=== PATIENT | male | born 1990 | race Caucasian/White ===

== ENCOUNTER 2017-06-07 16:34 | Emergency (ER) | payer OTHER ==
[2017-06-07 16:55] VITALS: RESP 18
[2017-06-07] MEDS ORDERED: SODIUM CHLORIDE 0.9% 1,000 ML IV STA (17:28)
--- NOTE | 2017-06-07 17:34 | ED ---
Syncope HPI - General Chief Complaint: Syncope Stated Complaint: Syncope Time Seen by Provider: 06/07/17 17:03 Source: patient, RN notes reviewed, old records reviewed Mode of arrival: ambulatory Limitations: no limitations - History of Present Illness Initial Comments: This patient is a 26-year-old male presents emergency Department after syncopal episode. 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 This is prior to donating plasma. He then had a syncopal episode. He reports that he fell back and hit his head and lost consciousness. He reports that he was unconscious for approximately 30 seconds to a minute. He states that he also is complaining of some left elbow pain related to the fall. He denies any chest pain shortness of breath. He reports he's been having some headaches frequently but he believes is related to chemicals he's been working with with his car. He states that he has had some mild discomfort in related to the fall this time. Denies any recent fever or chills. No chest pain or shortness of breath. Reports is generally healthy. Denies any nausea or vomiting. No changes in urination or bowel habits lately. - Related Data Previous Rx's Medication Instructions Recorded Ibuprofen [Motrin] 400 mg PO TID #20 tab 06/07/17 Allergies Allergy/AdvReac Type Severity Reaction Status Date / Time lactose Allergy Nausea & Verified 06/07/17 17:46 Vomiting & Diarrhea peanut Allergy Nausea & Verified 06/07/17 17:46 Vomiting & Diarrhea tomato Allergy Rash/Hives Verified 06/07/17 17:46 Beef Containing Products AdvReac Nausea & Verified 06/07/17 17:46 [Beef] Vomiting red dye AdvReac Confusion Verified 06/07/17 17:46 Review of Systems ROS Statement: Those systems with pertinent positive or pertinent negative responses have been documented in the HPI. ROS Other: All systems not noted in ROS Statement are negative. Past Medical History Past Medical History: No Reported History History of Any Multi-Drug Resistant Organisms: None Reported Additional Past Surgical History / Comment(s): tooth extraction, skin graft Past Psychological History: No Psychological Hx Reported Smoking Status: Never smoker Past Alcohol Use History: None Reported Past Drug Use History: None Reported General Exam - General Exam Comments Initial Comments: Is alert and oriented well-appearing 26-year-old male. No distress. Limitations: no limitations General appearance: alert, in no apparent distress Head exam: Present: atraumatic, normocephalic, normal inspection Eye exam: Present: normal appearance, PERRL, EOMI. Absent: scleral icterus, conjunctival injection, periorbital swelling ENT exam: Present: normal exam, mucous membranes moist Neck exam: Present: normal inspection. Absent: tenderness, meningismus, lymphadenopathy Respiratory exam: Present: normal lung sounds bilaterally. Absent: respiratory distress, wheezes, rales, rhonchi, stridor Cardiovascular Exam: Present: regular rate, normal rhythm, normal heart sounds. Absent: systolic murmur, diastolic murmur, rubs, gallop, clicks GI/Abdominal exam: Present: soft, normal bowel sounds. Absent: distended, tenderness, guarding, rebound, rigid Extremities exam: Present: normal inspection, full ROM, normal capillary refill. Absent: tenderness, pedal edema, joint swelling, calf tenderness Back exam: Present: normal inspection Neurological exam: Present: alert, oriented X3, CN II-XII intact Expanded Patient oriented to: Present: person, place, time Speech: Present: fluid speech Cranial nerves: EOM's Intact: Normal, Facial Sensation: Normal Cerebellar function: Finger to Nose: Normal Upper motor neuron: Pronator Drift: Normal Sensory exam: Upper Extremity Light Touch: Normal, Lower Extremity Light Touch: Normal Motor strength exam: RUE: 5, LUE: 5, RLE: 5, LLE: 5 Eye Response: (4) open spontaneously Motor Response: (6) obeys commands Verbal Response: (5) oriented Rector Total: 15 Psychiatric exam: Present: normal affect, normal mood Skin exam: Present: warm, dry, intact, normal color. Absent: rash Course Vital Signs 06/07/17 06/07/17 16:53 18:39 Temperature 97.6 F Pulse Rate 81 69 Respiratory 18 18 Rate Blood Pressure 130/66 112/67 O2 Sat by Pulse 99 100 Oximetry Medical Decision Making - Medical Decision Making Patient's 26-year-old male presents or urgency department stay chief complaint syncopal episode. He reports that he fell passed out in the back of his head. Also complains of left elbow pain. Patient's labwork was reviewed and unremarkable. Negative troponin. White blood cell count was within normal limits. Urinalysis negative. No signs of significant dehydration. EKG was normal. Chest x-ray was normal. Elbow x-rays are normal. CT brain was negative for any acute process. He really denies any significant complaints at this time since of elbow pain. We'll place in a Ronnell wrap for the elbow. Discussed anti-inflammatory medicines. Discussed remaining hydrated. Discussed falling up with primary care provider may need to have any further testing related syncopal episode. Patient agrees treatment plan will comply. Return parameters were discussed. - Lab Data Result diagrams: 06/07/17 17:55 06/07/17 17:55 Lab Results 06/07/17 06/07/17 06/07/17 Range/Units 17:55 17:55 17:55 WBC 12.3 H (3.8-10.6) k/uL RBC 4.72 (4.30-5.90) m/uL Hgb 13.9 (13.0-17.5) gm/dL Hct 40.0 (39.0-53.0) % MCV 84.7 (80.0-100.0) fL MCH 29.4 (25.0-35.0) pg MCHC 34.7 (31.0-37.0) g/dL RDW 12.6 (11.5-15.5) % Plt Count 289 (150-450) k/uL Neutrophils % 76 % Lymphocytes % 16 % Monocytes % 5 % Eosinophils % 1 % Basophils % 0 % Neutrophils # 9.4 H (1.3-7.7) k/uL Lymphocytes # 2.0 (1.0-4.8) k/uL Monocytes # 0.6 (0-1.0) k/uL Eosinophils # 0.1 (0-0.7) k/uL Basophils # 0.0 (0-0.2) k/uL PT (9.0-12.0) sec INR (<1.2) APTT (22.0-30.0) sec Sodium 145 (137-145) mmol/L Potassium 4.5 (3.5-5.1) mmol/L Chloride 103 (98-107) mmol/L Carbon Dioxide 29 (22-30) mmol/L Anion Gap 13 mmol/L BUN 12 (9-20) mg/dL Creatinine 0.80 (0.66-1.25) mg/dL Est GFR (CKD-EPI)AfAm >90 (>60 ml/min/1.73 sqM) Est GFR (CKD-EPI)NonAf >90 (>60 ml/min/1.73 sqM) Glucose 118 H (74-99) mg/dL Calcium 10.1 (8.4-10.2) mg/dL Magnesium 1.8 (1.6-2.3) mg/dL Total Bilirubin 0.4 (0.2-1.3) mg/dL AST 17 (17-59) U/L ALT 19 L (21-72) U/L Alkaline Phosphatase 54 (38-126) U/L Total Creatine Kinase 59 (55-170) U/L CK-MB (CK-2) 0.3 (0.0-2.4) ng/mL CK-MB (CK-2) Rel Index 0.5 Troponin I <0.012 (0.000-0.034) ng/mL Total Protein 6.8 (6.3-8.2) g/dL Albumin 4.2 (3.5-5.0) g/dL Urine Color Urine Appearance (Clear) Urine pH (5.0-8.0) Ur Specific [place] (1.001-1.035) Urine Protein (Negative) Urine Glucose (UA) (Negative) Urine Ketones (Negative) Urine Blood (Negative) Urine Nitrite (Negative) Urine Bilirubin (Negative) Urine Urobilinogen (<2.0) mg/dL Ur Leukocyte Esterase (Negative) 06/07/17 06/07/17 Range/Units 17:55 17:55 WBC (3.8-10.6) k/uL RBC (4.30-5.90) m/uL Hgb (13.0-17.5) gm/dL Hct (39.0-53.0) % MCV (80.0-100.0) fL MCH (25.0-35.0) pg MCHC (31.0-37.0) g/dL RDW (11.5-15.5) % Plt Count (150-450) k/uL Neutrophils % % Lymphocytes % % Monocytes % % Eosinophils % % Basophils % % Neutrophils # (1.3-7.7) k/uL Lymphocytes # (1.0-4.8) k/uL Monocytes # (0-1.0) k/uL Eosinophils # (0-0.7) k/uL Basophils # (0-0.2) k/uL PT 11.4 (9.0-12.0) sec INR 1.2 H (<1.2) APTT 25.1 (22.0-30.0) sec Sodium (137-145) mmol/L Potassium (3.5-5.1) mmol/L Chloride (98-107) mmol/L Carbon Dioxide (22-30) mmol/L Anion Gap mmol/L BUN (9-20) mg/dL Creatinine (0.66-1.25) mg/dL Est GFR (CKD-EPI)AfAm (>60 ml/min/1.73 sqM) Est GFR (CKD-EPI)NonAf (>60 ml/min/1.73 sqM) Glucose (74-99) mg/dL Calcium (8.4-10.2) mg/dL Magnesium (1.6-2.3) mg/dL Total Bilirubin (0.2-1.3) mg/dL AST (17-59) U/L ALT (21-72) U/L Alkaline Phosphatase (38-126) U/L Total Creatine Kinase (55-170) U/L CK-MB (CK-2) (0.0-2.4) ng/mL CK-MB (CK-2) Rel Index Troponin I (0.000-0.034) ng/mL Total Protein (6.3-8.2) g/dL Albumin (3.5-5.0) g/dL Urine Color Colorless Urine Appearance Clear (Clear) Urine pH 7.0 (5.0-8.0) Ur Specific [place] 1.003 (1.001-1.035) Urine Protein Negative (Negative) Urine Glucose (UA) Negative (Negative) Urine Ketones Negative (Negative) Urine Blood Negative (Negative) Urine Nitrite Negative (Negative) Urine Bilirubin Negative (Negative) Urine Urobilinogen <2.0 (<2.0) mg/dL Ur Leukocyte Esterase Negative (Negative) 06/07/17 18:00 EKG performed at 1759 shows normal sinus rhythm with sinus arrhythmia. EKG shows. Ventricular rate of 64 bpm. MS interval is 140 ms. QRS duration 96 ms. QT QTc is 410/422 ms. No evidence of this elevation or T-wave inversion. No was of atrial ventricular arrhythmias. - Radiology Data Radiology results: report reviewed CT brain and C-spine is reviewed and negative for any acute process. Calvarium is intact. No hemorrhages noted. No mass effect or masses noted.. Nasal sinuses and middle ear cavities and mastoid sinus air cells are clear. Orbits are intact. Elbow x-rays negative for any acute process. No acute processes noted in the chest x-ray. Disposition Clinical Impression: Vasovagal syncope, Sprain of elbow, left, Head injury Disposition: HOME SELF-CARE Condition: Good Instructions: Syncope (ED) Additional Instructions: Patient advised to follow-up with primary care provider. Make sure the remaining hydrated. Return to emergency department if any alarming signs or symptoms occur. Prescriptions: Ibuprofen [Motrin] 400 mg PO TID #20 tab Referrals: None,Stated [Primary Care Provider] - 1-2 days Inez Brunson MD [STAFF PHYSICIAN] - 1-2 days Lyubov Kim MD [REFERRING] - 1-2 days Time of Disposition: 18:43
[2017-06-07 18:05] LABS: Appearance,Urine Clear (Clear); Basophils % (A) 0 %; Bilirubin,Urine Negative (Negative); Blood,Urine Negative (Negative); Color,Urine Colorless; Eosinophils # (A) 0.1 k/uL (0-0.7); Eosinophils % (A) 1 %; Glucose,Urine (UA) Negative (Negative); HGB 13.9 gm/dL (13.0-17.5); Ketones,Urine Negative (Negative); Leukocyte Esterase,Urine Negative (Negative); Lymphocytes % (A) 16 %; MCH 29.4 pg (25.0-35.0); MCHC 34.7 g/dL (31.0-37.0); MCV 84.7 fL (80.0-100.0); Mean Platelet Volume 7.5; Monocytes # (A) 0.6 k/uL (0-1.0); Monocytes % (A) 5 %; Neutrophils # (A) 9.4 k/uL (1.3-7.7); Neutrophils % (A) 76 %; Nitrite,Urine Negative (Negative); Platelet Count 289 k/uL (150-450); Protein,Urine Negative (Negative); RBC 4.72 m/uL (4.30-5.90); RDW 12.6 % (11.5-15.5); Specific Gravity,Urine 1.003 (1.001-1.035); Urobilinogen,Urine <2.0 mg/dL (<2.0); WBC 12.3 k/uL (3.8-10.6)
[2017-06-07 18:15] LABS: ALT 19 U/L (21-72); AST 17 U/L (17-59); Albumin 4.2 g/dL (3.5-5.0); Alkaline Phosphatase 54 U/L (38-126); Anion Gap 13 mmol/L; Blood Urea Nitrogen 12 mg/dL (9-20); Calcium 10.1 mg/dL (8.4-10.2); Carbon Dioxide 29 mmol/L (22-30); Chloride 103 mmol/L (98-107); Glucose 118 mg/dL (74-99); Magnesium 1.8 mg/dL (1.6-2.3); Potassium 4.5 mmol/L (3.5-5.1); Sodium 145 mmol/L (137-145); Total Bilirubin 0.4 mg/dL (0.2-1.3); Total Protein 6.8 g/dL (6.3-8.2)
[2017-06-07] MEDS ORDERED: IBUPROFEN 600 MG TAB PO STA (18:22)
[2017-06-07] MEDS ORDERED: ACETAMINOPHEN TAB 500 MG TAB PO STA (18:22)
[2017-06-07 18:23] LABS: Creatine Kinase 59 U/L (55-170)
[2017-06-07 18:26] LABS: INR 1.2 (<1.2); Partial Thromboplastin Time 25.1 sec (22.0-30.0); Prothrombin Time 11.4 sec (9.0-12.0)
--- NOTE | 2017-06-07 18:30 | CT ---
EXAMINATION: CT brain wo con DATE AND TIME: 06/07/2017 6:21 PM ORDERING PROVIDER: Shira Benitez CLINICAL INDICATION: syncope ; patient fell backwards hitting head. TECHNIQUE: Standard departmental protocol. COMPARISON: None. DESCRIPTION: The calvarium is intact. There is no intracranial hemorrhage. There is no mass or mass e ffect. There is no definite new attenuation defect. Remainder of the intra-axial and extra-axial comp artment examination is unremarkable. The paranasal sinuses, middle ear cavities, and mastoid sinus ai r cells are clear. The orbits are intact. IMPRESSION: NO ACUTE PROCESS.
[2017-06-07 18:37] LABS: Creatine Kinase MB 0.3 ng/mL (0.0-2.4); Troponin I <0.012 ng/mL (0.000-0.034)
--- NOTE | 2017-06-07 18:37 | XR ---
EXAMINATION: XR chest 2V DATE AND TIME: 06/07/2017 6:28 PM ORDERING PROVIDER: Shira Benitez CLINICAL INDICATION: syncope TECHNIQUE: PA and lateral COMPARISON: None. DESCRIPTION: The lungs are clear. The pleural spaces are negative. The cardiac silhouette is not enlarged. The mediastinal and pleural silhouettes are unremarkable. The skeletal structures are intact without focal findings. The soft tissues are unremarkable. IMPRESSION: NO ACUTE PROCESS.
--- NOTE | 2017-06-07 18:38 | XR ---
PROCEDURE: XR elbow complete LT, 3 VIEWS DATE AND TIME: 06/07/2017 6:28 PM REFERRING PHYSICIAN: Shira Benitez CLINICAL INDICATION: PHH, Pain TECHNIQUE: Department protocol. COMPARISON: None FINDINGS: There is no fracture or malalignment. The soft tissues are unremarkable. IMPRESSION: NO ACUTE PROCESS.
[2017-06-07 18:40] VITALS: BP 112/67; PULSE 69
[2017-06-07 19:21] VITALS: TEMP 97.7
== END 2017-06-07 19:21 | disposition home or self-care (01) ==
LOC: EC 16:34
DX: S53.402A Unspecified sprain of left elbow, initial encounter (principal); S09.90XA Unspecified injury of head, initial encounter; R55 Syncope and collapse; Z91.010 Allergy to peanuts; Z91.011 Allergy to milk products; Z91.018 Allergy to other foods; Z91.09 Other allergy status, other than to drugs and biological substances; W18.00XA Striking against unspecified object with subsequent fall, initial encounter
CPT/HCPCS: 36415; 70450; 71046; 80053; 81003; 82550; 82553; 83735; 84484; 85025; 85610; 85730; 93005; 96360; 99285

== ENCOUNTER 2023-07-26 21:10 | Emergency (ER) | payer BC ==
[2023-07-26 21:34] VITALS: TEMP 98.7
[2023-07-26] MEDS: diphenhydrAMINE 50 MG/ML 1 ML VIAL IVP STA (21:48)
[2023-07-26] MEDS: DEXAMETHASONE SOD PHOSPHATE 10 MG/ML 1 ML VIAL IVP STA (21:49)
[2023-07-26] MEDS: FAMOTIDINE 20 MG/2 ML VIAL IV STA (21:50)
--- NOTE | 2023-07-26 21:55 | ED ---
Allergic Reaction HPI - General Chief complaint: Allergic Reaction Stated complaint: Allergic reaction,swollen tongue-Peanuts Time Seen by Provider: 07/26/23 21:20 Source: patient Mode of arrival: wheelchair Limitations: no limitations - History of Present Illness Initial Comments: 33-year-old male with known allergy to peanut oil presenting to the ED with a chief complaint of allergic reaction. Patient states at work luncheon today someone brought AN fried walleye in peanut oil. 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 States since then has had an itchy throat. No difficulty breathing. No trouble swallowing. Does have an EpiPen at home. Did take 2 Benadryl at home with some relief of symptoms. However states after a hot shower symptoms became worse prompting presentation to the ED for further evaluation. No chest pain. No other complaints at this time. - Related Data Previous Rx's Medication Instructions Recorded Ibuprofen [Motrin] 400 mg PO TID #20 tab 06/07/17 Allergies Allergy/AdvReac Type Severity Reaction Status Date / Time lactose Allergy Nausea & Verified 07/26/23 21:17 Vomiting & Diarrhea peanut Allergy Nausea & Verified 07/26/23 21:17 Vomiting & Diarrhea prednisone Allergy abscess Verified 07/26/23 21:18 tomato Allergy Rash/Hives Verified 07/26/23 21:17 Beef Containing Products AdvReac Nausea & Verified 07/26/23 21:17 [Beef] Vomiting red dye AdvReac Confusion Verified 07/26/23 21:17 Review of Systems ROS Statement: Those systems with pertinent positive or pertinent negative responses have been documented in the HPI. ROS Other: All systems not noted in ROS Statement are negative. Past Medical History Past Medical History: No Reported History History of Any Multi-Drug Resistant Organisms: None Reported Additional Past Surgical History / Comment(s): tooth extraction, skin graft Past Psychological History: No Psychological Hx Reported Smoking Status: Vaper Past Alcohol Use History: None Reported Past Drug Use History: None Reported General Exam Limitations: no limitations General appearance: alert, in no apparent distress Eye exam: Present: normal appearance ENT exam: Present: normal oropharynx, other (No significant oropharyngeal swelling. No stridor. Tolerating secretions.) Respiratory exam: Present: normal lung sounds bilaterally. Absent: respiratory distress, accessory muscle use Cardiovascular Exam: Present: regular rate GI/Abdominal exam: Present: soft Neurological exam: Present: alert, oriented X3 Skin exam: Present: warm, dry Course Vital Signs 07/26/23 07/26/23 21:14 22:52 Temperature 98.7 F Pulse Rate 107 H 78 Respiratory 20 18 Rate Blood Pressure 173/115 120/76 O2 Sat by Pulse 100 98 Oximetry Medical Decision Making - Medical Decision Making Was pt. sent in by a medical professional or institution (, PA, SHAPER SETTER, urgent care, hospital, or detention...) When possible be specific @ -No Did you speak to anyone other than the patient for history (EMS, parent, family, police, friend...)? What history was obtained from this source @ -No Did you review nursing and triage notes (agree or disagree)? Why? @ -I reviewed and agree with nursing and triage notes Were old charts reviewed (outside hosp., previous admission, EMS record, old EKG, old radiological studies, urgent care reports/EKG's, detention records)? Report findings @ -No old charts were reviewed Differential Diagnosis (chest pain, altered mental status, abdominal pain women, abdominal pain men, vaginal bleeding, weakness, fever, dyspnea, syncope, headache, dizziness, GI bleed, back pain, seizure, CVA, palpatations, mental health, musculoskeletal)? @ -Differential Musculoskeletal Anaphylaxsis, Muscular strain, contusion, ligament sprain, fracture, arthritis, septic arthritis, bursitis, cellulitis, muscle spasm, nerve compression, DVT, arterial occlusion, herpes zoster, electrolyte abnormality, tumor.... This is not meant to be in all inclusive list EKG interpreted by me (3pts min.). @ -None X-rays interpreted by me (1pt min.). @ -None done CT interpreted by me (1pt min.). @ -None done U/S interpreted by me (1pt. min.). @ -None done What testing was considered but not performed or refused? (CT, X-rays, U/S, labs)? Why? @ -None What meds were considered but not given or refused? Why? @ -None Did you discuss the management of the patient with other professionals (professionals i.e. , PA, SHAPER SETTER, lab, RT, psych nurse, health and social care teacher, straight pin making machine operator, teacher, licensed mortgage loan officer, case finishing machine adjuster)? Give summary @ -No Was smoking cessation discussed for >3mins.? @ -No Was critical care preformed (if so, how long)? @ -No Were there social determinants of health that impacted care today? How? (Homelessness, low income, unemployed, alcoholism, drug addiction, transportation, low edu. Level, literacy, decrease access to med. care, longterm, rehab)? @ -No Was there de-escalation of care discussed even if they declined (Discuss DNR or withdrawal of care, Hospice)? DNR status @ -No What co-morbidities impacted this encounter? (DM, HTN, Smoking, COPD, CAD, Cancer, CVA, ARF, Chemo, Hep., AIDS, mental health diagnosis, sleep apnea, morbid obesity)? @ -Allergies Was patient admitted / discharged? Hospital course, mention meds given and route, prescriptions, significant lab abnormalities, going to OR and other pertinent info. @ -Discharge 33-year-old male presenting to the ED with complaints of itchy throat after possibly being excellently exposed to peanut oil. On exam, no significant oropharyngeal swelling, tolerating secretions, no stridor, no rash. No evidence of anaphylaxis at this time. Patient provided Benadryl, Pepcid, dexamethasone with improvement of symptoms. Discharged home in a stable condition. Advise close follow-up with PCP. Discussed return precautions with patient and who verbalized agreement. Undiagnosed new problem with uncertain prognosis? @ -No Drug Therapy requiring intensive monitoring for toxicity (Heparin, Nitro, Insulin, Cardizem)? @ -No Were any procedures done? @ -No Diagnosis/symptom? @ -Allergic reaction Acute, or Chronic, or Acute on Chronic? @ -Acute Uncomplicated (without systemic symptoms) or Complicated (systemic symptoms)? @ -Complicated Side effects of treatment? @ -No Exacerbation, Progression, or Severe Exacerbation? @ -No Poses a threat to life or bodily function? How? (Chest pain, [place], [place], pneumonia, PE, COPD, DKA, ARF, appy, cholecystitis, CVA, Diverticulitis, Homicidal, Suicidal, threat to staff... and all critical care pts) @ -Unlikely at this time Disposition Clinical Impression: Allergic reaction Disposition: HOME SELF-CARE Condition: Good Instructions (If sedation given, give patient instructions): Anaphylaxis (ED) Is patient prescribed a controlled substance at d/c from ED?: No Referrals: Eber Herrera DO [Primary Care Provider] - 1-2 days Time of Disposition: 23:12
[2023-07-26 23:15] VITALS: RESP 18
[2023-07-27 00:07] VITALS: BP 128/76; PULSE 65
== END 2023-07-26 23:23 | disposition home or self-care (01) ==
LOC: EC 21:10
DX: T78.40XA Allergy, unspecified, initial encounter (principal); F17.290 Nicotine dependence, other tobacco product, uncomplicated; Z91.011 Allergy to milk products; Z91.010 Allergy to peanuts; Z91.018 Allergy to other foods; Z91.041 Radiographic dye allergy status; Z88.8 Allergy status to other drugs, medicaments and biological substances
CPT/HCPCS: 99283; 96374; 96375 ×2; J1200; J1100; J3490

== ENCOUNTER → 2024-02-24 | Outpatient (CLI) | payer BC ==
[2024-02-24 16:51] VITALS: BP 124/87; PULSE 92; RESP 12; TEMP 97.8
--- NOTE | 2024-02-24 17:16 | P.SLEEP ---
History of Present Illness DATE: 02/24/2024 CONSULTATION/NEW PATIENT EVALUATION HISTORY OF PRESENT ILLNESS/SLEEP-WAKE EVALUATION: 33-year-old gentleman had been evaluated in the sleep center for possible obstructive sleep apnea hypopnea syndrome. SLEEP SCHEDULE: Usually sleep schedule from 9 PM to 3 AM on working days and from 10 PM to 9 AM on weekend. FALLING ASLEEP: Sometimes patient has difficulties with falling asleep, has TV set in bedroom. DURING SLEEP: Patient usually sleeps on the side position with snoring and episodes of stop breathing during the sleep by his . Positive history of sleepwalking, heartburn and sleep talking. Patient wakes up from sleep up to 7 times with up to 3 episodes of nocturia positive history of tossing and turning, kicking. No history of hypnogogical hallucinations, sleep paralysis, or cataplexy. DURING THE DAY/WAKE STATE: In the morning patient wake up tired, has difficulties to pay attention, falling asleep during the day. Positive history of falling asleep during the day, problems with memory, concentration, irritability, depression. [place] sleepiness scale is an extremely high range of 22. Usually patient does not take naps. PAST MEDICAL HISTORY: Asthma. PAST SURGICAL HISTORY: Status post pilonidal cyst removed. MEDICATIONS: Please see below. SOCIAL HISTORY: Please see below. FAMILY HISTORY: Please see below. REVIEW OF SYSTEMS: Snoring, multiple awakenings from sleep, sleepiness during the day. No fevers. No double vision. No recent chest pain. No shortness of breath. No abdominal pain. No bleeding episodes. No blood in urine. No seizure episodes. PHYSICAL EXAMINATION: GENERAL: A pleasant patient without any distress. VITAL SIGNS: Please see below, weight 208 pounds, BMI 29. HEENT: PERRJUAN MANUEL, EOMI. Evaluation of oropharynx showed tongue protrudes midline, low position of soft palate Mallampati 23, big uvula, big tonsils especially on the left side. NECK: Supple. No JVD. Thyroid is not palpable. 15 inches in circumference. LUNGS: Clear to percussion and to auscultation. Good air exchange. No wheezing or rhonchi. HEART: S1, S2 regular. No murmurs, gallops or rubs. ABDOMEN: Soft and nontender. Bowel sounds are present. No organomegaly appreciated. EXTREMITIES: No clubbing or cyanosis. HARDWARE TECHNICIAN: Awake, alert, and oriented x3. Cranial nerves 2 to 7 intact. There is no fasciculation or atrophy noted. No focal deficits observed. ASSESSMENT: 1. Snoring, multiple awakenings from sleep, small oropharyngeal airspace, sleepiness. Obstructive sleep apnea hypopnea syndrome. 2. Extreme sleepiness by [place] Sleepiness Scale of 22 dictate necessity to include hypersomnia and narcolepsy and differential diagnosis. 3. Acid reflux. 4. Allergy. 5 asthma. 6 . Significant amount of movements during the sleep, possibly periodic limb movements. 7. Status post pilonidal cyst removed. PLAN: 1. Polysomnography for evaluation of patient's breathing during sleep. Multiple sleep latency test if sleep study will be negative for obstructive sleep apnea hypopnea syndrome. 2. Following plan after reading sleep study. 3. Preferable position during sleep on the side. 4. No driving if patient feels any sleepiness. Patient is aware of civil and criminal liability for unsafe driving. 5. Sleep hygiene with regular sleep time for at least 7.5-8 hours. 6. Watching weight. Thank you very much for referring this patient for consultation. Sincerely, Carlito Wise MD, PhD, FAASM. Diplomat of [place] [employer], Sleep Medicine Board by [place] [employer] [place] [employer] [facility] [place] cc: Mel Bosch PA-C Past Medical History Past Medical History: No Reported History, GERD/Reflux History of Any Multi-Drug Resistant Organisms: MRSA Date of last positivie culture/infection: 2021 MDRO Source:: cyst Additional Past Surgical History / Comment(s): tooth extraction, skin graft, abcess removal Past Anesthesia/Blood Transfusion Reactions: No Reported Reaction Past Psychological History: No Psychological Hx Reported Smoking Status: Vaper Past Alcohol Use History: Occasional Past Drug Use History: None Reported Medications and Allergies Home Medications Medication Instructions Recorded Confirmed Type Cyclobenzaprine [Flexeril] 10 mg PO PRN 02/24/24 History HYDROcodone/APAP 10-325MG [[place] 1 tab PO Q6HR PRN 02/24/24 02/24/24 History 10-325] Omeprazole 20 mg PO 02/24/24 History diphenhydrAMINE [Benadryl] 25 mg PO HS PRN 02/24/24 02/24/24 History Allergies Allergy/AdvReac Type Severity Reaction Status Date / Time lactose Allergy Nausea & Verified 07/26/23 21:17 Vomiting & Diarrhea peanut Allergy Nausea & Verified 07/26/23 21:17 Vomiting & Diarrhea prednisone Allergy abscess Verified 07/26/23 21:18 tomato Allergy Rash/Hives Verified 07/26/23 21:17 Beef Containing Products AdvReac Nausea & Verified 07/26/23 21:17 [Beef] Vomiting red dye AdvReac Confusion Verified 07/26/23 21:17 Physical Exam Vitals: Vital Signs Temp Pulse Resp BP Pulse Ox 02/24/24 16:49 97.8 F 92 12 124/87 98 Sleep Note - Sleep Data ESS Total: 22 - Sleep Note Sleep Note: Temperature: 97.8 F Pulse Rate: 92 Respiratory Rate: 12 Blood Pressure: 124/87 SpO2: 98 Height: Weight: BMI: Neck Circumference: 15
== END ==
LOC: 3 N SLEEP 15:50
PROVIDERS: ATTEND Internal Medicine
DX: G47.33 Obstructive sleep apnea (adult) (pediatric) (principal); K21.9 Gastro-esophageal reflux disease without esophagitis; J45.909 Unspecified asthma, uncomplicated; Z98.890 Other specified postprocedural states; Z91.011 Allergy to milk products; Z91.018 Allergy to other foods; Z91.041 Radiographic dye allergy status; Z91.014 Allergy to mammalian meats
CPT/HCPCS: 99211